=== PATIENT | male | born 1990 | race Caucasian/White ===

== ENCOUNTER 2018-06-14 12:06 | Emergency (ER) | payer OTHER ==
[2018-06-14] MEDS: 0.9 % SODIUM CHLORIDE 1,000 ML BAG IV ONE (12:40)
--- NOTE | 2018-06-14 12:40 | Emergency Department Record ---
History of Present Illness - General Chief Complaint: Abdominal Pain Stated Complaint: PAIN LT LOWER ABDOMIN Time Seen by Provider: 06/14/18 12:25 Source: Patient, RN notes reviewed Mode of Arrival: Ambulatory - History of Present Illness Initial Comments: left lower quad pain and lifting lots of weight at work yesterday. No vomiting and no diarrhea and no dysuria and previous appendectomy Onset/Timin -: Days(s) Location: LLQ Severity: Moderate Severity scale (1-10): 6 Quality: Other Consistency: Constant, Intermittent Improves With: Nothing Worsens With: Movement, Other Associated Symptoms: Constipation - Related Data Previous Rx's Medication Instructions Recorded Ibuprofen [Motrin 600Mg] 600 mg PO Q6H #30 tablet 06/14/18 Allergies Allergy/AdvReac Type Severity Reaction Status Date / Time No Known Drug Allergies Allergy Verified 06/14/18 12:11 Travel Screening - Travel/Exposure Within Last 30 Days Have you traveled within the last 30 days?: No - Travel/Exposure Within Last Year Have you traveled outside the [place] in the last year?: No - Additonal Travel Details Have you been exposed to anyone with a communicable illness?: No - Travel Symptoms Symptom Screening: None Review of Systems Reviewed: No additional complaints except as noted below Constitutional: Reports: As per HPI. Denies: Chills, Fever, Malaise, Night sweats, Weakness, Weight change Eyes: Reports: As per HPI. Denies: Eye discharge, Eye pain, Photophobia, Vision change ENT: Reports: As per HPI. Denies: Congestion, Dental pain, Ear pain, Epistaxis , Hearing loss, Throat pain Respiratory: Reports: As per HPI. Denies: Cough, Dyspnea, Hemoptysis, Stridor, Wheezes Cardiovascular: Reports: As per HPI. Denies: Arrhythmia, Chest pain, Dyspnea on exertion, Edema, Murmurs, Orthopnea, Palpitations, Paroxysmal nocturnal dyspnea, Rheumatic Fever, Syncope Endocrine: Reports: As per HPI. Denies: Fatigue, Heat or cold intolerance, Polydipsia, Polyuria Gastrointestinal: Reports: As per HPI, Abdominal pain. Denies: Constipation, Diarrhea, Hematemesis, Hematochezia, Melena, Nausea, Vomiting Genitourinary: Reports: As per HPI. Denies: Dysuria, Frequency, Hematuria, Incontinence, Retention, Testicular pain, Testicular mass, Urgency Musculoskeletal: Reports: As per HPI. Denies: Arthralgia, Back pain, Gout, Joint swelling, Myalgia, Neck pain Skin: Reports: As per HPI. Denies: Bruising, Change in color, Change in hair/ nails, Lesions, Pruritus, Rash Neurological: Reports: As per HPI. Denies: Abnormal gait, Confusion, Headache, Numbness, Paresthesias, Seizure, Tingling, Tremors, Vertigo, Weakness Psychiatric: Reports: As per HPI. Denies: Anxiety, Auditory hallucinations, Depression, Homicidal thoughts, Suicidal thoughts, Visual hallucinations Hematological/Lymphatic: Reports: As per HPI. Denies: Anemia, Blood Clots, Easy bleeding, Easy bruising, Swollen glands Past Medical History - SOCIAL HISTORY Smoking Status: Never smoker Alcohol Use: None Drug Use: None - RESPIRATORY Hx Respiratory Disorders: No - CARDIOVASCULAR Hx Cardio Disorders: No - NEURO Hx Neuro Disorders: No - GI Hx GI Disorders: No - Hx Genitourinary Disorders: No - ENDOCRINE Hx Endocrine Disorders: No - MUSCULOSKELETAL Hx Musculoskeletal Disorders: No - PSYCH Hx Psych Problems: No - HEMATOLOGY/ONCOLOGY Hx Hematology/Oncology Disorders: No Family Medical History Any Significant Family History?: Yes Hx Diabetes: Grandparents Hx HTN: Father Physical Exam - General General Appearance: Alert, Oriented x3, Cooperative, No acute distress - Head Head exam: Normal inspection - Eye Eye exam: Normal appearance, PERRL Pupils: Normal accommodation - ENT ENT exam: Normal exam, Mucous membranes moist, Normal external ear exam, Normal orophraynx, TM's normal bilaterally Ear exam: Normal external inspection. negative: External canal tenderness Nasal Exam: Normal inspection. negative: Discharge, Sinus tenderness Mouth exam: Normal external inspection, Tongue normal Teeth exam: Normal inspection. negative: Dental caries Throat exam: Normal inspection. negative: Tonsillar erythema, Tonsillar exudate - Neck Neck exam: Normal inspection, Full ROM. negative: Tenderness - Respiratory Respiratory exam: Normal lung sounds bilaterally. negative: Respiratory distress - Cardiovascular Cardiovascular Exam: Regular rate, Normal rhythm, Normal heart sounds - GI/Abdominal GI/Abdominal exam: Soft, Normal bowel sounds, Tenderness (left lower quad pain, with guarding and he took two norco ) - Rectal Rectal exam: Deferred - exam: Deferred - Extremities Extremities exam: Normal inspection, Full ROM, Normal capillary refill. negative: Tenderness - Back Back exam: Reports: Normal inspection, Full ROM. Denies: Muscle spasm, Rash noted, Tenderness - Neurological Neurological exam: Alert, Normal gait, Oriented X3, Reflexes normal - Psychiatric Psychiatric exam: Normal affect, Normal mood - Skin Skin exam: Dry, Intact, Normal color, Warm Course Vital Signs 06/14/18 12:12 Temperature 97.9 F Pulse Rate 73 Respiratory 18 Rate Blood Pressure 144/90 Pulse Ox 97 Medical Decision Making - Data Complexity MDM Data: X-Ray Ordered and/or Reviewed (epiploic appendagitis) - Lab Data Result diagrams: 06/14/18 12:30 06/14/18 12:30 Disposition Clinical Impression: Epiploic appendagitis Abdominal pain Qualifiers: Abdominal location: left lower quadrant Qualified Code(s): R10.32 - Left lower quadrant pain Disposition: Home, Self-Care Condition: (1) Good Instructions: Abdominal Pain (ED) Additional Instructions: follow up with family in 2 day motrin 600 mg three time a day Prescriptions: Ibuprofen [Motrin 600Mg] 600 mg PO Q6H #30 tablet Forms: Patient Portal Access Time of Disposition: 14:14 Quality - Quality Measures Quality Measures: N/A - Blood Pressure Screening Does Patient Have Any of the Following: No Blood Pressure Classification: Hypertensive Reading Systolic Measurement: 144 Diastolic Measurement: 90 Screening for High Blood Pressure: < Pre-Hypertensive BP, F/U Documented > [ G8950] Pre-Hypertensive Follow-up Interventions: Referral to alternative/primary care provider.
[2018-06-14 12:42] LABS: BASO % 0.5 % (0-6); EOS % 4.8 % (0-6); GRAN % 56.8 % (47-80); HEMATOCRIT 46.3 % (42.0-52.0); HEMOGLOBIN 15.8 gm/dl (14.0-18.0); MEAN CELL VOLUME 84.2 fl (81-97); MEAN CORPUSCULAR HEMOGLOBIN 28.7 pg (27-33); MEAN CORPUSCULAR HGB CONC 34.1 g/dl (32-36); MEAN PLATELET VOLUME 9.6 fl (7.4-10.4); MONO % 6.9 % (0-9); PLATELET COUNT 272 K/uL (130-400); RED CELL DISTRIBUTION WIDTH 13.4 % (11.5-14.5); WHITE BLOOD COUNT W/O DIFF 5.7 K/uL (4.2-12.2)
[2018-06-14 12:54] LABS: BLOOD UREA NITROGEN 12 mg/dL (6-20); CREATININE 0.9 mg/dL (0.7-1.2); EST GLOMERULAR FILTRATION RATE > 60 mL/min
[2018-06-14 12:57] LABS: GLUCOSE,RANDOM 89 mg/dL (74-109)
[2018-06-14 13:00] LABS: LIPASE 24 U/L (13-60)
--- NOTE | 2018-06-16 08:50 | CT SCAN REPORT ---
EXAM: CT OF THE ABDOMEN AND PELVIS WITHOUT CONTRAST HISTORY: LEFT LOWER QUADRANT PAIN. TECHNIQUE: Standard CT imaging of the abdomen and pelvis was obtained without contrast. Coronal and sagittal reformations are created. Comparison: 01/08/15. FINDINGS: The lung bases are clear. The liver is unremarkable. No calcified gallstones in the gallbladder. No peripancreatic fat stranding. The spleen is normal in size. The adrenal glands appear normal. No nephrolithiasis or hydronephrosis. No bowel dilatation. There is a focally inflamed fat lobule along the antimesenteric border of the descending colon consistent with epiploic appendagitis. Mild mesenteric and right pelvic adenopathy is similar to prior exam. The bladder is unremarkable. No free fluid or free air. No destructive osseous lesion is identified. IMPRESSION: EPIPLOIC APPENDAGITIS OF THE DESCENDING COLON. JOB NUMBER: [id number] MTDD
== END 2018-06-14 14:30 | disposition home or self-care (01) ==
LOC: ER 12:06
DX: K63.89 Other specified diseases of intestine (principal)
CPT/HCPCS: 74176; 80048; 83690; 85025; 99284; J7030

== ENCOUNTER 2018-11-23 15:57 | Emergency (ER) | payer OTHER ==
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
--- NOTE | 2018-11-26 10:05 | RADIOLOGY REPORT ---
EXAM: SACRUM AND COCCYX HISTORY: ACUTE COCCYGEAL PAIN POST FALL. TECHNIQUE: Three views of the sacrum and coccyx were obtained. Comparison: CT abdomen and pelvis without contrast dated 06/14/18. Encounter: Initial. FINDINGS: There is normal bone mineralization. No acute fracture nor subluxation. The arcuate lines are intact. The sacroiliac joints are symmetric and normal in appearance. Mild disk space narrowing is suspected at the L4-L5 level. IMPRESSION: 1. NO ACUTE FRACTURE NOR SUBLUXATION IDENTIFIED. 2. MILD DISK SPACE NARROWING SUGGESTED AT THE L4-L5 LEVEL. JOB NUMBER: [id number] [facility]
== END 2018-11-23 17:19 | disposition home or self-care (01) ==
LOC: ER 15:57
DX: S30.0XXA Contusion of lower back and pelvis, initial encounter (principal); S50.812A Abrasion of left forearm, initial encounter; S30.810A Abrasion of lower back and pelvis, initial encounter; V86.56XA Driver of dirt bike or motor/cross bike injured in nontraffic accident, initial encounter; Y92.007 Garden or yard of unspecified non-institutional (private) residence as the place of occurrence of the external cause
CPT/HCPCS: 72220; 99283

== ENCOUNTER 2018-11-25 10:27 | Emergency (ER) | payer OTHER ==
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
== END 2018-11-25 12:10 | disposition home or self-care (01) ==
LOC: ER 10:27
DX: S30.0XXA Contusion of lower back and pelvis, initial encounter (principal); V86.56XA Driver of dirt bike or motor/cross bike injured in nontraffic accident, initial encounter
CPT/HCPCS: 72192; 99283